=== PATIENT | male | born 1970 | race African-American/Black ===

== ENCOUNTER 2022-01-31 13:24 | Emergency (ER) | payer BC ==
[2022-01-31 13:37] VITALS: BP 161/89; PULSE 76; BMI 25.4
[2022-01-31] MEDS ORDERED: METHOCARBAMOL 500 MG TABLET PO ONE (14:51)
[2022-01-31] MEDS ORDERED: NAPROXEN 500 MG TABLET PO ONE (14:51)
[2022-01-31] MEDS ORDERED: NAPROXEN 500 MG TABLET ONE (14:56)
[2022-01-31] MEDS ORDERED: METHOCARBAMOL 500 MG TABLET ONE (14:56)
== END 2022-01-31 15:01 | disposition home or self-care (01) ==
LOC: JERFT 13:24
DX: M54.12 Radiculopathy, cervical region (principal)
CPT/HCPCS: 99283-25

== ENCOUNTER 2022-02-03 07:42 | Emergency (ER) | payer BC ==
[2022-02-03 07:46] VITALS: BP 159/90; PULSE 77; TEMP 98.1; BMI 25.4
[2022-02-03] MEDS ORDERED: KETOROLAC TROMETHAMINE 30 MG/1 ML VIAL IM ONE (07:57)
[2022-02-03] MEDS ORDERED: LIDOCAINE 5% TOPICAL PATCH TP ONE (07:57)
[2022-02-03] MEDS ORDERED: diazePAM 5 MG TABLET PO ONE (07:57)
[2022-02-03] MEDS ORDERED: diazePAM 5 MG TABLET ONE (08:09)
[2022-02-03] MEDS ORDERED: LIDOCAINE 5% TOPICAL PATCH ONE (08:10)
[2022-02-03] MEDS ORDERED: KETOROLAC TROMETHAMINE 30 MG/1 ML VIAL ONE (08:10)
[2022-02-03] MEDS ORDERED: LIDOCAINE PATCH REMOVAL MC ONE (22:00)
== END 2022-02-03 10:04 | disposition home or self-care (01) ==
LOC: JERFT 07:42
PROC: 3E023GC Introduction of Other Therapeutic Substance into Muscle, Percutaneous Approach (ICD-10-PCS; principal; 2022-02-03)
DX: M62.830 Muscle spasm of back (principal)
CPT/HCPCS: 99284-25